=== PATIENT | female | born 1990 | race Two or more races ===

== ENCOUNTER 2022-11-08 06:50 | Day surgery (SDC) | payer OTHER ==
[~2022-11-08] VITALS: Ht 160 cm; Wt 61.2 kg
[~2022-11-08 06:50] MED LIST: ZITHROMAX1 GM PO
== END 2022-11-08 13:00 | disposition home or self-care (01) ==
LOC: CIR.AMB 06:50
PROVIDERS: ATTEND Surgery
DX: D17.23 Benign lipomatous neoplasm of skin and subcutaneous tissue of right leg (principal); Z20.822 Contact with and (suspected) exposure to COVID-19